=== PATIENT | female | born 1970 | race Caucasian/White ===

== ENCOUNTER → 2018-11-04 | Day surgery (SDC) | payer OTHER ==
[~2018-11-04] MED LIST: BIRTH CONTROL PO; CARAFATE1 GM/10 ML PO; FENTANYL CITRATE/PF 100MCG/2 ML INJ ONE; LO LOESTRIN FE1 EACH PO; METOCLOPRAMIDE10 MG PO; MIDAZOLAM HCL 2 MG/2 ML VIAL ONE; MULTIVITAMINS1 EAC7 PO; OMEPRAZOLE40 MG PO; PANTOPRAZOLE SO40 MG PO; PROPOFOL IV EMULSION 10 MG/ML 50 ML VIAL ONE; RANITIDINE HCL300 M1 PO
--- OUTSIDE RECORDS SUMMARY | 2018-11-04 08:47 | XMS REPORT | Summary of Care ---
Author Author [facility] Outpatient Imaging [facility] Outpatient [facility] Address Unknown Phone Unavailable Encounter HQ Encntr_alias(FIN) [id number] Date(s): 10/02/16 - 10/02/16 [facility] Outpatient Imaging [facility] [address] [facility], [address] [place] [phone] Discharge Disposition: Home or Self Care Attending Physician: John Baugh MD Vital Signs No data available for this section Problem List No data available for this section Allergies, Adverse Reactions, Alerts Substance Reaction Severity Status NKDA Active Medications No data available for this section Results No data available for this section Immunizations No data available for this section Procedures No data available for this section Social History No data available for this section Assessment and Plan No data available for this section
--- OUTSIDE RECORDS SUMMARY | 2018-11-04 08:47 | XMS REPORT | Clinical Summary ---
Author Author [facility] Address Unknown Phone Unavailable Care Team Providers Care Fashion Stylist Name Role Phone John Baugh MD PCP Allergies Comments Active Allergy Reactions Severity Noted Date Penicillin Rash Low 10/17/2017 Medications End Date Status Medication Sig Dispensed Refills Start Date Active ranitidine (ZANTAC) 300 TK 1 T PO QHS 0 MG tablet 8 Active pantoprazole (PROTONIX) TK 1 T PO QAM 3 40 MG EC tablet AC 8 Active nitrofurantoin TK ONE C PO 2 (MACRODANTIN) 100 MG AFTER SEXUAL 8 capsule INTERCOURSE Active vitamin E 400 UNIT Take 800 0 capsule Units by mouth daily. 02/25/2018 Discontinued LO LOESTRIN FE 1 mg-10 TK 1 T PO QD 4 mcg (24)/10 mcg (2) 8 tablet Active Problems Not on file Encounters Care Team Description Date Type Specialty Diamond Medeiros MA Amenorrhea (Primary Dx) 03/01/2018 Orders Only Obstetrics and Gynecology Meek Redman MD Breast pain (Primary Dx) 02/26/2018 Transcribe Access Orders Meek Redman MD Breast pain (Primary Dx); Amenorrhea 02/25/2018 Office Visit Obstetrics and Gynecology Kristan Metz RN 02/21/2018 Nurse Triage Obstetrics and Gynecology Kristan Metz RN 02/21/2018 Telephone Obstetrics and Gynecology Ruby Feng NP Low back pain, unspecified back pain laterality, unspecified chronicity, with sciatica presence unspecified (Primary Dx) 02/04/2018 Transcribe Physical Therapy Orders after 11/03/2017 Family History Medical History Relation Name Comments Breast cancer Cousin Heart attack Father Ovarian cancer Maternal Grandmother Kidney cancer Mother Relation Name Status Comments Cousin Alive Father Maternal Grandmother Mother Social History Date Tobacco Use Types Packs/Day Years Used Never Smoker Smokeless Tobacco: Never Used Alcohol Use Drinks/Week oz/Week Comments Yes ocassional Sex Assigned at Date Recorded Not on file Industry Job Start Date Occupation Not on file Not on file Not on file Travel End Travel History Travel Start No recent travel history available. Last Filed Vital Signs Time Taken Vital Sign Reading 02/25/2018 2:54 PM CDT Blood Pressure 126/81 02/25/2018 2:54 PM CDT Pulse 93 02/25/2018 2:54 PM CDT Temperature 36.8 C (98.3 F) - Respiratory Rate - - Oxygen Saturation - - Inhaled Oxygen - Concentration 02/25/2018 2:54 PM CDT Weight 54.5 kg (120 lb 3.2 oz) 02/25/2018 2:54 PM CDT Height 154.9 cm (5' 1") 02/25/2018 2:54 PM CDT Body Mass Index 22.71 Plan of Treatment Care Team Description Date Type Specialty Visaria, Meek Flores MD [address] [place] [address] [phone] 11/29/2018 Office Visit Obstetrics and Gynecology Health Maintenance Due Date Last Done Comments CERVICAL CANCER SCREENING 1990 INFLUENZA VACCINE 03/27/2018 Procedures Comments Procedure Name Priority Date/Time Associated Diagnosis FOLLICLE STIMULATING Routine 03/04/2018 Amenorrhea HORMONE 11:46 AM CDT HCG QUANTITATIVE, SERUM Routine 02/25/2018 Breast pain 3:26 PM CDT Amenorrhea TSH REFLEX TO T4F Routine 02/25/2018 Breast pain 3:26 PM CDT Amenorrhea after 11/03/2017 Results * Follicle stimulating hormone (03/04/2018 11:46 AM CDT) Follicle stimulating 7.7 mIU/mL [facility] Comment: OLIVIA Reference Range Follicular Phase 2.5-10.2 Mid-cycle Peak 3.1-17.7 Luteal Phase 1.5- 9.1 Postmenopausal 23.0-116.3 Specimen Blood Narrative Performed At FASTING:NO [facility] FASTING: NO Resulting Agency Comment Performing Organization Information: Site ID: [id number] Name: [facility] Address: [address] [place] [id number] Director: Celina Mejia Performing Organization Address [facility] [place] [address] * TSH reflex to T4 (02/25/2018 3:26 PM CDT) TSH reflex to FT4 3.04 mIU/L [facility] Comment: OLIVIA Reference Range > or=20 Years0.40-4.50 Ranges First trimester0.26-2.66 Second trimester 0.55-2.73 Third trimester0.43-2.91 Specimen Blood Resulting Agency Comment Performing Organization Information: Site ID: [id number] Name: [facility] Address: [address] [place] [address] Director: Celina Mejia Performing Organization Address [facility] Phone Number [place] [address] [address] * hCG quantitative, serum (02/25/2018 3:26 PM CDT) hCG quantitative, serum <2 mIU/mL [facility] Comment: OLIVIA Reference Range Non or premenopausal<5 Postmenopausal <10 Values from different assay methods may vary. The use of this assay to monitor or to diagnose patients with cancer or any condition unrelated to has not been cleared or approved by the FDA or the veneer jointer operator of the assay. Specimen Blood Resulting Agency Comment Performing Organization Information: Site ID: [id number] Name: [facility] Address: [address] [place] [phone] Director: Celina Mejia Performing Organization Address [facility] Phone Number [facility] [address] [address] after 11/03/2017 Insurance Payer Benefit Subscriber ID Type Phone Address Plan / Group AETNA AETNA xxxxxxxxxx HMO HMO,POS,EP O, [place] (Home) [place] [address] Advance Directives Patient has advance care planning documents on file. For more information, julia e contact: Cecil Nichols [address] [place] [address]
--- OUTSIDE RECORDS SUMMARY | 2018-11-04 08:47 | XMS REPORT | Summary of Care ---
Author Author [facility] Outpatient Imaging [facility] Outpatient [facility] Address Unknown Phone Unavailable Encounter HQ Kaylynr_sheela(FIN) [id number] Date(s): 04/01/18 - 04/01/18 [facility] Outpatient Imaging [facility] [address] [facility], [address] [place] [phone] Encounter Diagnosis Abnormal findings on diagnostic imaging of liver and biliary tract (Final) - 04/05/18 Nontoxic single thyroid nodule (Final) - Discharge Disposition: Home or Self Care Attending Physician: Harriett Castillo MD Referring Physician: Harriett Castillo MD Vital Signs No data available for [...]
--- OUTSIDE RECORDS SUMMARY | 2018-11-04 08:47 | XMS REPORT | Continuity of Care Document ---
Author Author [facility] Address Unknown Phone Unavailable Problems Problem Status Onset Date Classification Date Reported Comments Source Abnormal findings on diagnostic imaging of liver and biliary tract 04/06/2018 10/19/2018 [facility] [place] M79.1 - MYALGIA Active 10/02/2016 [facility] 786.5 - CHEST PAIN Active 08/16/2011 [facility] [place] Nontoxic single thyroid nodule 10/19/2018 [facility] [place] Medications Medication Details Route Status Patient Instructions Ordering Provider Order Date Source Allergies, Adverse Reactions, Alerts Substance Category Reaction Severity Reaction type Status Date Reported Comments Source Immunizations Immunization Date Given Site Status Last Updated Comments Source Results Order Name Results Value Reference Range Date Interpretation Comments Source Abdomen w/wo contrast MRI Abdomen w/wo contrast MRI INDICATION: R16.0 Hepatomegaly, not elsewhere classified COMPARISON: Abdominal ultrasound dated April 01, 2018 TECHNIQUE: Multiplanar multisequential MR images of the abdomen were obtained with and without intravenous contrast administration. Contrast: 11 cc Dotarem FINDINGS: Lines and tubes: None. Lower thorax: Unremarkable. Liver and biliary tree: In the caudate lobe, and there is a 2.8 x 4.6 x 3.9 cm lobulated T2 hyperintense/T1 hypointense diffusion restricting mass. On postcontrast images, there is progressive centripetal interrupted nodular enhancement, which is compatible with a hemangioma. There is a 1.1 cm cyst in segment 7/6 Gallbladder: Surgically absent Pancreas: Normal. Spleen: Normal. Adrenals: Normal. Kidneys and proximal ureters: Normal. No hydronephrosis. Gastrointestinal tract: Unremarkable with normal caliber. Peritoneum and retroperitoneum: No ascites or free air. Lymph nodes: No pathologic adenopathy. Vasculature: Unremarkable. Bones: No acute abnormality. Soft tissues: Unremarkable. IMPRESSION: 1. 2.8 x 4.6 x 3.9 cm hepatic hemangioma. 2. 1.1 cm hepatic cyst. 3. Cholecystectomy. 04/19/2018 - - Read by: Dutch Earl Date/time: 04/19/18 14:30 Electronically Signed by: Dutch Earl 04/19/18 14:39 FINAL REPORT [facility] Thyroid US Thyroid US EXAM: US THYROID DATE: 04/01/2018 8:23 AM CDT INDICATION: - E04.1 Nontoxic single thyroid nodule COMPARISON: None. TECHNIQUE: Multiplanar grayscale and color Doppler ultrasound images of the neck were obtained in the area of the thyroid. DISCUSSION: Thyroid parenchyma: Normal. Right thyroid size: 4.9 x 1.1 x 1.7 cm Left thyroid size: 4.3 x 1 x 1.3 cm Thyroid nodule: 7 x 3 x 5 mm colloid cyst in the right lobe mid gland inferiorly and 4 x 2 x 5 mm colloid cyst in the left lobe medially towards the isthmus.. Isthmus: 2.5 mm. IMPRESSION: 2 subcentimeter colloid cysts as described above. No solid dominant thyroid nodule. Recommendations for Thyroid Nodules > 1 cm Solitary Nodule Microcalcifications: Strongly consider US-guided FNA if=1 cm Solid (or almost entirely solid) or coarse calcifications: Strongly consider US- guided FNA if=1.5 cm Mixed solid and cystic or almost entirely cystic with solid mural component: Consider FNA if=2 cm Almost entirely cystic and none of above features and without substantial growth (or without prior US): US-guided FNA probably unnecessary Multiple Nodules Consider US-guided FNA of one or more nodules, with selection prioritized on basis of criteria (in order listed) for solitary nodule Lymph Nodes Present Presence of abnormal lymph nodes (abnormal morphology such as heterogeneous echotexture, calcifications, cystic area, or short axis diameter=0.7 cm) overrides US features of thyroid nodule(s) and should prompt US-guided FNA or biopsy of the lymph nodes and/or ipsilateral thyroid nodule. Diffusely Enlarged Gland FNA likely unnecessary with multiple nodules of similar appearance without intervening thyroid parenchyma. NOTE: Recommendations apply only to nodules 1 cm or larger in size because of the uncertainty as to whether or not diagnosis of smaller cancers improves life expectancy, as well as concern that inclusion of smaller nodules would lead to an excessive number of biopsies. Reference: Yecenia MC, Santiago WELCH, Zahra DAWSNO et al. Management of thyroid nodules detected at US: Society of Radiologists in Ultrasound consensus conference statement. Radiology. 2005; [phone]. 04/01/2018 - - Read by: Nick Fiore MD Dictated Date/time: 04/01/18 10:05 Electronically Signed by: Nick Fiore MD 04/01/18 10:12 FINAL REPORT [facility] Abdomen complete US Abdomen complete US EXAM: US ABDOMEN COMPLETE DATE: 04/01/2018 8:22 AM CDT INDICATION: - R93.2 Abnormal findings on diagnostic imaging of liver and biliary tract COMPARISON: None. TECHNIQUE: Multiplanar grayscale and color Doppler ultrasound images of the abdomen. FINDINGS: Liver: Craniocaudal length: 12.2 cm. Normal. Echogenicity: Normal. Mass (size and location): Heterogeneous mixed echogenic lesion in the left lobe measuring 4.3 x 2.9 x 4.3 cm. A simple cyst in the right hepatic dome measuring 13 x 10 x 13 mm. Portal vein: Normal. Bile ducts: Common bile duct diameter: 6 mm. Intrahepatic ducts: Normal. Gallbladder: Absent. Pancreas: Head and uncinate process: Normal. Body and tail: Not seen. Spleen: Craniocaudal length: 11.3 cm. Normal. Mass or focal lesion (size and location): None. Right kidney: Hydronephrosis: None. Size: 10.3 x 4.1 x 5 cm. Normal. Echogenicity: Normal. Mass/Stone/Cyst (size and location): None. Left kidney: Hydronephrosis: None. Size: 10.5 x 4 x 4.7 cm. Normal. Echogenicity: Normal. Mass/Stone/Cyst (size and location): None. Abdominal aorta and IVC: Visualized portions are normal. Ascites: None. IMPRESSION: 4 x 3 cm mixed echogenic lesion involving the left hepatic lobe, likely an adenoma given the history of OCP use. Needs further evaluation with liver MRI. 04/01/2018 - - Read by: Nick Fiore MD Dictated Date/time: 04/01/18 09:53 Electronically Signed by: Nick Fiore MD 04/01/18 10:05 FINAL REPORT [facility] Spine thoracic 3 views DX Spine thoracic 3 views DX EXAM: XR THORACIC SPINE 2 VIEWS EXAM: XR LUMBAR SPINE 2 VIEWS DATE: 10/02/2016 1:28 PM SCHEDULER INDICATION: M79.1 Myalgia COMPARISON: None available TECHNIQUE: AP and lateral radiographs of the thoracic and lumbar spine. FINDINGS: Vertebral body heights and alignment are preserved throughout. Tiny Schmorl's nodes are present at L1-L2, along with tiny osteophytes. Minimal S- shaped curvature of the thoracic spine may be positional on the supine views. Paraspinous soft tissue contours are normal. Surgical clips overlie the gallbladder fossa IMPRESSION: Tiny osteophytes and small Schmorl's nodes at L1-L2. Otherwise no bony abnormality. 10/02/2016 - - Read by: Viki Negron MD Dictated Date/time: 10/02/16 16:10 Electronically Signed by: Viki Negron MD 10/02/16 16:12 FINAL REPORT [facility] Spine lumbar 2 or 3 views DX Spine lumbar 2 or 3 views DX EXAM: XR THORACIC SPINE 2 VIEWS EXAM: XR LUMBAR SPINE 2 VIEWS DATE: 10/02/2016 1:28 PM SCHEDULER INDICATION: M79.1 Myalgia COMPARISON: None available TECHNIQUE: AP and lateral radiographs of the thoracic and lumbar spine. FINDINGS: Vertebral body heights and alignment are preserved throughout. Tiny Schmorl's nodes are present at L1-L2, along with tiny osteophytes. Minimal S- shaped curvature of the thoracic spine may be positional on the supine views. Paraspinous soft tissue contours are normal. Surgical clips overlie the gallbladder fossa IMPRESSION: Tiny osteophytes and small Schmorl's nodes at L1-L2. Otherwise no bony abnormality. 10/02/2016 - - Read by: Viki Negron MD Dictated Date/time: 10/02/16 16:10 Electronically Signed by: Viki Negron MD 10/02/16 16:12 FINAL REPORT [facility] Vital Signs Vital Sign Value Date Comments Source Encounters Location Location Details Encounter Type Encounter Number Reason For Visit Attending Provider ADM Date DC Date Status Source OD [id number] 786.5 - CHEST PAIN JOHN BAUGH 08/16/2011 Active [facility] Outpatient Imaging - [place] [facility] [id number] John Baugh 10/02/2016 10/03/2016 [facility] Outpatient Imaging - [place] [facility] [id number] Harriett Castillo 04/01/2018 04/02/2018 [facility] LOZANO [place] Procedures Procedure Code Date Perfomer Comments Source
--- OUTSIDE RECORDS SUMMARY | 2018-11-04 08:47 | XMS REPORT | CCD ---
Author Author Auto Generated Organization [facility] Outpatient Imaging - [place] Address Unknown Phone Unavailable Care Team Providers Care Wired Music Operator Name Role Phone John Baugh CP Allergies, Adverse Reactions, Alerts Substance Reaction Status NKDA Active
[2018-11-04 15:50] VITALS: BP 112/85
--- NOTE | 2018-11-05 01:26 | Operative Report ---
DATE OF PROCEDURE: 11/04/2018 SURGEON: Miguel Iqbal MD PROCEDURE: EGD with esophageal dilatation and biopsies. INDICATIONS FOR EGD: Dysphagia. MEDICATION: The patient was done under MAC. Please see anesthesiologist's note. PROCEDURE IN DETAIL: With the patient in left lateral decubitus position, flexible fiberoptic Olympus gastroscope was introduced into the esophagus under direct visualization without any difficulty. There was some patchy erythema noted in distal esophagus. A mild stricture was noted at the GE junction, that was dilated to size 52-Palestinian Diallo. The scope was then advanced with ease into the stomach traversing a small sliding hiatal hernia. Mucosa overlying the antrum and the body revealed some patchy erythema and low-grade to moderate edema and biopsies were obtained and sent to stain for H pylori. A minute polyp was noted in the upper body of the stomach and that was excised with cold biopsy forceps. Pylorus was of normal contour and shape, was intubated with ease and the scope was advanced all the way to the second portion of the duodenum. The scope was then withdrawn slowly and biopsies were obtained from the proximal and second portion and duodenal bulb to rule out sprue. The scope was then withdrawn back into the stomach and retroflexed. Mucosa overlying the fundus and the cardia appeared to be within normal limits. The scope was then straightened out, it was subsequently withdrawn. The patient tolerated the procedure well. IMPRESSION: 1. Distal esophagitis, mild. 2. Esophageal stricture, gastroesophageal junction dilated to size 52-Palestinian Diallo. 3. Small sliding hiatal hernia. 4. Gastritis, biopsied. Biopsies sent to stain for H pylori. 5. Gastric polyp, upper body excised with cold biopsy forceps. 6. Rule out sprue. PLAN: Follow up histology. Increase Protonix to 40 mg one p.o. a.c. b.i.d. Miguel Iqbal MD [facility] [place] /[id number] cc: John Baugh
== END | disposition home or self-care (01) ==
LOC: OR 08:44
PROVIDERS: ATTEND Internal Medicine Gastroenterology
DX: K29.70 Gastritis, unspecified, without bleeding (principal); K21.0 Gastro-esophageal reflux disease with esophagitis; K44.9 Diaphragmatic hernia without obstruction or gangrene; F41.9 Anxiety disorder, unspecified; Z88.0 Allergy status to penicillin; K22.2 Esophageal obstruction; K31.7 Polyp of stomach and duodenum; R13.10 Dysphagia, unspecified
CPT/HCPCS: 43239; 43450; 81025; J2250; J2704

== ENCOUNTER → 2019-12-12 | Day surgery (SDC) | payer OTHER ==
[~2019-12-12] MED LIST changes: +DEXILANT60 MG PO; +LIDOCAINE HCL 2% LOCAL INJ 5 ML SDV VIAL INJ ONE; +METOCLOPRAMIDE HCL 10 MG/2ML VIAL ONE; +PANTOPRAZOLE 40 MG 10ML VIAL ONE; +SODIUM CHLORIDE 0.9% INJ 10 ML VIAL ONE
[2019-12-12 12:50] VITALS: BP 111/75
--- NOTE | 2019-12-12 16:53 | Operative Report ---
DATE OF PROCEDURE: 12/12/2019 SURGEON: Miguel Iqbal MD PROCEDURE: EGD with polypectomy and biopsies and esophageal dilatation. INDICATIONS FOR COLONOSCOPY: Dysphagia to solids, burning in stomach. MEDICATIONS: The patient was done under MAC, please see anesthesiologist's note. PROCEDURE IN DETAIL: With the patient in the left lateral decubitus position, the flexible fiberoptic Olympus gastroscope was introduced into the esophagus under direct visualization without any difficulty. There was some patchy erythema noted in distal esophagus. A mild stricture was noted at the GE junction that was dilated to size 52-Tajik Diallo. The scope was then advanced with ease into the stomach traversing a small sliding hiatal hernia. Mucosa overlying the antrum and the body revealed some patchy intense erythema and moderate edema, and biopsies were obtained and sent to stain for H pylori. Multiple minute hyperplastic-appearing polyps were noted in the body of the stomach, some were partially excised with the cold biopsy forceps. The pylorus was of normal contour and shape was intubated with ease and the scope was advanced all the way to the second portion of the duodenum. The scope was then withdrawn slowly. Mucosa overlying the proximal second portion and the duodenal bulb appeared to be within normal limits. The scope was then withdrawn back into the stomach and retroflexed and mucosa overlying the fundus and cardia appeared to be within normal limits. The scope was then straightened out, it was subsequently withdrawn. The patient tolerated the procedure well. IMPRESSION: 1. Distal esophagitis, mild. 2. Esophagus dilated to size 52-Tajik Diallo. 3. Small sliding hiatal hernia. 4. Gastritis, biopsied, biopsies sent to stain for Helicobacter pylori. 5. Gastric polyps, several, body, hyperplastic-appearing, some were partially excised with cold biopsy forceps. PLAN: Follow up histology. Continue Dexilant 60 mg one p.o. q.a.m. a.c. and Protonix 40 mg one p.o. at bedtime. Miguel Iqbal MD [facility] /[id number] cc: John Baugh
== END | disposition home or self-care (01) ==
LOC: OR 10:18
PROVIDERS: ATTEND Internal Medicine Gastroenterology
DX: K21.0 Gastro-esophageal reflux disease with esophagitis (principal); K31.7 Polyp of stomach and duodenum; K29.50 Unspecified chronic gastritis without bleeding; K22.2 Esophageal obstruction; K44.9 Diaphragmatic hernia without obstruction or gangrene; R03.0 Elevated blood-pressure reading, without diagnosis of hypertension; Z88.0 Allergy status to penicillin; Z88.8 Allergy status to other drugs, medicaments and biological substances
CPT/HCPCS: 43239; 43450; 81025; 93005; C9113; J2001; J2250; J2704; J2765; J3010